=== PATIENT | male | born 1965 | race American Indian/Alaskan Native ===

== ENCOUNTER 2017-10-23 12:40 | Emergency (ER) | payer BC ==
[2017-10-23] MEDS ORDERED: Iopamidol 612 MG/ML 100 ML Bottle IVPUSH ONE (12:56)
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
[2017-10-23] MEDS ORDERED: Lactated Ringers 1,000 ML IV ONE (12:57)
[2017-10-23] MEDS ORDERED: fentaNYL 100 MCG/2 ML SDV IVPUSH ONE ×2 (12:58→13:51)
[2017-10-23] MEDS ORDERED: Sodium Chloride 0.9% 10 ML Syringe FLUSH PRN (12:59)
[2017-10-23] MEDS ORDERED: Ondansetron 4 MG/2 ML SDV IV ONE (12:59)
[2017-10-23] MEDS ORDERED: Diphtheria,Pertussis(Acell),Tetanus Vaccine 0.5 ML SDV IM ONE (13:01)
[2017-10-23] MEDS ORDERED: Insulin Regular, Human 100 Units/ML 3 ML Vial SUBCUT ONE (13:03)
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
[2017-10-23 13:21] LABS: CHLORIDE,CL 94 mmol/L (101-111); SODIUM,NA 131 mmol/L (135-145)
[2017-10-23] MEDS ORDERED: Lactated Ringers 1,000 ML IV SCH (13:30)
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
[2017-10-23] MEDS ORDERED: fentaNYL 100 MCG/2 ML SDV ONE (13:51)
[2017-10-23] MEDS ORDERED: ceFAZolin 1 GM Vial IVPUSH ONE (13:53)
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
--- NOTE | 2017-10-27 14:41 | EKG ---
10/23/2017 - JESSICA GURROLA - FINDINGS: This 12-lead EKG shows a sinus tachycardia with a ventricular rate of 108. Left anterior fascicular block. Poor R-wave progression. No acute ST- segment or T-wave changes. [facility] /[id number]
== END 2017-10-23 14:34 ==
LOC: DL.ED 12:40
DX: S21.112A Laceration without foreign body of left front wall of thorax without penetration into thoracic cavity, initial encounter (principal); X99.8XXA Assault by other sharp object, initial encounter; Z23 Encounter for immunization
CPT/HCPCS: 36415; 71045; 71260; 72125; 74177; 80053; 80305; 81001; 82150; 83690; 85025; 85610; 85730; 90471; 90715; 93005; 96361; 96372; 96374; 96375; 96376; 99285; G0480; J0690; J1815; J2405; J3010; J7120; Q9967